=== PATIENT | female | born 1955 | race Caucasian/White ===

== ENCOUNTER 2019-05-18 01:37 | Emergency (ER) | payer OTHER ==
[2019-05-18] MEDS ORDERED: Ondansetron 4 MG/2 ML SDV IVPUSH ONE (01:45)
[2019-05-18] MEDS ORDERED: HYDROmorphone 0.5 MG/0.5 ML Syringe IVPUSH ONE ×2 (01:45→02:49)
--- NOTE | 2019-05-18 01:47 | EDM.PDOC ---
ED HPI GENERAL MEDICAL PROBLEM - General Chief Complaint: Gastrointestinal Problem Stated Complaint: VOMITING Time Seen by Provider: 05/18/19 01:37 Source of Information: Reports: Patient History Limitations: Reports: No Limitations - History of Present Illness INITIAL COMMENTS - FREE TEXT/NARRATIVE: 63-year-old female arrives with severe upper epigastric and right upper quadrant abdominal pain for the past 4 hours. She is crying, extremely uncomfortable and having difficulty walking. She appears to be hyperventilating. It started when she was vomiting 2-3 hours after eating supper at 6 PM and since that time has had intractable severe pain. The symptoms started gradually. She thinks the pain is from "throwing up so hard". She has no chest pain, shortness of breath, palpitations or fever. She had some diarrhea yesterday, no bowel movement today. She feels her heartburn is "terrible". Onset: Gradual Duration: Hour(s): (4-5 hours) Location: Reports: Abdomen Associated Symptoms: Reports: Malaise, Nausea/Vomiting. Denies: Chest Pain, Cough, Weakness epigastric/ abd Pain Score (Numeric/FACES): 10 - Related Data Allergies Allergy/AdvReac Type Severity Reaction Status Date / Time acetaminophen [From Percocet] Allergy Hives Verified 05/18/19 01:45 oxycodone [From Percocet] Allergy Hives Verified 05/18/19 01:45 Home Meds: Home Meds Aspirin [Halfprin] 81 mg PO DAILY 05/18/19 [History] Cholecalciferol (Vitamin D3) [Vitamin D3] 1,000 unit PO DAILY 05/18/19 [History] Ibuprofen [Motrin] 600 mg PO Q6H PRN 05/18/19 [History] Metoprolol Succinate [Toprol Xl] 50 mg PO DAILY 05/18/19 [History] Olopatadine HCl [Pazeo] 1 drop TOP DAILY 05/18/19 [History] Pantoprazole Sodium [Protonix] 40 mg PO DAILY 05/18/19 [History] Simvastatin 20 mg PO BEDTIME 05/18/19 [History] traZODone HCl [Trazodone HCl] 100 mg PO BEDTIME 05/18/19 [History] ED ROS GENERAL - Review of Systems Review Of Systems: See Below Constitutional: Reports: Malaise. Denies: Fever, Chills HEENT: Reports: No Symptoms Respiratory: Denies: Shortness of Breath Cardiovascular: Reports: Chest Pain (Epigastric pain) GI/Abdominal: Reports: Abdominal Pain, Nausea, Vomiting. Denies: Black Stool, Constipation, Diarrhea : Reports: No Symptoms Skin: Reports: Pallor, Diaphoresis Neurological: Reports: No Symptoms ED EXAM, GI/ABD - Physical Exam Exam: See Below Exam Limited By: No Limitations General Appearance: Alert, Severe Distress Eyes: Bilateral: Normal Appearance (No obvious jaundice, good hydration) Head: Atraumatic Respiratory/Chest: No Respiratory Distress, Lungs Clear Cardiovascular: Regular Rate, Rhythm. No: Tachycardia GI/Abdominal Exam: Guarding, Rebound, Tender, Other (Severe tenderness to palpation across the epigastric area with guarding and rebound) Extremities: Normal Inspection. No: Pedal Edema Skin Exam: Warm, Other (Diaphoretic) Course - Vital Signs Last Recorded V/S: Last Vital Signs Temp 97.1 F 05/18/19 01:41 Pulse 95 05/18/19 03:16 Resp 24 H 05/18/19 03:16 BP 154/100 H 05/18/19 03:16 Pulse Ox 97 05/18/19 03:16 - Orders/Labs/Meds Orders: Active Orders 24 hr Category Date Time Status CULTURE BLOOD [BC] Urgent Lab 05/18/19 03:05 Received CULTURE BLOOD [BC] Urgent Lab 05/18/19 03:10 Received Blood Culture x2 Reflex Set [OM.PC] Urgent Oth 05/18/19 03:00 Ordered Labs: Laboratory Tests 05/18/19 05/18/19 05/18/19 Range/Units 02:05 02:05 02:05 WBC 13.7 H (4.5-11.0) K/uL RBC 5.58 H (3.30-5.50) M/uL Hgb 16.5 H (12.0-15.0) g/dL Hct 48.8 H (36.0-48.0) % MCV 88 (80-98) fL MCH 30 (27-31) pg MCHC 34 (32-36) % Plt Count 266 (150-400) K/uL Neut % (Auto) 83 H (36-66) % Lymph % (Auto) 13 L (24-44) % [place] % (Auto) 4 (2-6) % Eos % (Auto) 0 L (2-4) % Baso % (Auto) 0 (0-1) % Sodium 141 (140-148) mmol/L Potassium 3.7 (3.6-5.2) mmol/L Chloride 103 (100-108) mmol/L Carbon Dioxide 27 (21-32) mmol/L Anion Gap 11.2 (5.0-14.0) mmol/L BUN 11 (7-18) mg/dL Creatinine 1.1 H (0.6-1.0) mg/dL Est Cr Clr Drug Dosing 46.38 mL/min Estimated GFR (MDRD) 50 L (>60) Glucose 225 H (74-106) mg/dL Lactic Acid 3.9 H (0.4-2.0) mmol/L Calcium 9.2 (8.5-10.1) mg/dL Total Bilirubin 2.1 H (0.2-1.0) mg/dL AST 169 H (15-37) U/L ALT 89 H (12-78) U/L Alkaline Phosphatase 145 H (46-116) U/L Troponin I (0.000-0.056) ng/mL Total Protein 7.1 (6.4-8.2) g/dL Albumin 3.8 (3.4-5.0) g/dL Globulin 3.3 (2.3-3.5) g/dL Albumin/Globulin Ratio 1.2 (1.2-2.2) Amylase 2453 H (25-115) U/L Lipase 11814 H (73-393) U/L 05/18/19 Range/Units 02:05 WBC (4.5-11.0) K/uL RBC (3.30-5.50) M/uL Hgb (12.0-15.0) g/dL Hct (36.0-48.0) % MCV (80-98) fL MCH (27-31) pg MCHC (32-36) % Plt Count (150-400) K/uL Neut % (Auto) (36-66) % Lymph % (Auto) (24-44) % [place] % (Auto) (2-6) % Eos % (Auto) (2-4) % Baso % (Auto) (0-1) % Sodium (140-148) mmol/L Potassium (3.6-5.2) mmol/L Chloride (100-108) mmol/L Carbon Dioxide (21-32) mmol/L Anion Gap (5.0-14.0) mmol/L BUN (7-18) mg/dL Creatinine (0.6-1.0) mg/dL Est Cr Clr Drug Dosing mL/min Estimated GFR (MDRD) (>60) Glucose (74-106) mg/dL Lactic Acid (0.4-2.0) mmol/L Calcium (8.5-10.1) mg/dL Total Bilirubin (0.2-1.0) mg/dL AST (15-37) U/L ALT (12-78) U/L Alkaline Phosphatase (46-116) U/L Troponin I < 0.017 (0.000-0.056) ng/mL Total Protein (6.4-8.2) g/dL Albumin (3.4-5.0) g/dL Globulin (2.3-3.5) g/dL Albumin/Globulin Ratio (1.2-2.2) Amylase (25-115) U/L Lipase (73-393) U/L Meds: Medications Discontinued Medications Generic Name Dose Route Start Last Admin Trade Name Freq PRN Reason Stop Dose Admin Hydromorphone HCl 0.5 mg 05/18/19 01:45 05/18/19 01:48 Dilaudid IVPUSH 05/18/19 01:46 0.5 mg ONETIME ONE Administration Hydromorphone HCl 0.5 mg 05/18/19 02:49 05/18/19 02:53 Dilaudid IVPUSH 05/18/19 02:50 0.5 mg ONETIME ONE Administration Hydromorphone HCl Confirm 05/18/19 02:50 05/18/19 02:53 Dilaudid Administered 05/18/19 02:51 Not Given Dose 0.5 mg .ROUTE .STK-MED ONE Sodium Chloride 1,000 mls @ 1,000 mls/hr 05/18/19 02:15 05/18/19 02:39 Normal Saline IV 1,000 mls/hr ASDIRECTED CORINE Administration Sodium Chloride 83 mls @ 4 mls/sec 05/18/19 02:20 05/18/19 02:27 Normal Saline IV 05/18/19 02:21 4 mls/sec ASDIRECTED STA Administration Lactated Ringer's 1,000 mls @ 1,000 mls/hr 05/18/19 03:00 05/18/19 02:55 Ringers, Lactated IV 1,000 mls/hr ASDIRECTED CORINE Administration Piperacillin Sod/Tazobactam 100 mls @ 100 mls/hr 05/18/19 03:00 05/18/19 03: 11 Sod 4.5 gm/ Sodium Chloride IV 05/18/19 03:59 100 mls/hr ONETIME ONE Administration Iopamidol 150 ml 05/18/19 02:30 05/18/19 02:27 Isovue-300 (61%) IV 150 ml . DIRECTED CORINE Administration Lorazepam 1 mg 05/18/19 01:54 05/18/19 02:02 Ativan IVPUSH 05/18/19 01:55 1 mg ONETIME ONE Administration Ondansetron HCl 4 mg 05/18/19 01:45 05/18/19 01:48 Zofran IVPUSH 05/18/19 01:46 4 mg ONETIME ONE Administration - Re-Assessments/Exams Free Text/Narrative Re-Assessment/Exam: 05/18/19 03:09 An IV was started and the patient was given 0.5 mg of IV Dilaudid and 4 mg of Zofran. CBC, CMP, amylase, lipase, lactic acid and troponin were obtained. An urgent CT the abdomen and pelvis with IV contrast was obtained and the creatinine returned normal. This revealed extremely inflammatory pancreatitis, lipase returned over 14,000 and amylase over 2400. Bilirubin was 2.1, white count 13,700 and elevation of alkaline phosphatase and AST and ALT were also present. An additional 0.5 mg of IV Dilaudid was given and the patient was bolused with lactated Ringer's. There was a delay in getting a formal CT reading , however it was obvious that severe pancreatitis was present in the gallbladder was also completely packed with stones. I discussed this with our surgeon on-call and it was felt because of the significant gallstone pancreatitis, that gastroenterology, interventional radiology and ICU together should be combined to help this patient so [facility] was called. Dr. Beck, hospitalist service kindly agreed to see the patient. Blood cultures were obtained, she was given 4.5 g of IV Zofran and continued to be bolused with lactated Ringer's. This patient was flown to [place] because of the seriousness of her illness. 05/18/19 03:13 Patient was accepted for transfer at 3 AM. At time of dictation a formal CT report had still not been obtained, the images were sent to [place] for their review and when a formal report is available that will be faxed for completeness. Departure - Departure Time of Disposition: 03:46 Disposition: DC/Tfer to Other 70 Condition: Serious Clinical Impression: Abdominal pain Pancreatitis due to biliary obstruction Qualifiers: Chronicity: acute Acute pancreatitis complication: unspecified Qualified Code(s ): K85.10 - Biliary acute pancreatitis without necrosis or infection - Discharge Information Referrals: Elva Selby PA [Primary Care Provider] - Forms: ED Department Discharge Care Plan Goals: Patient will be urgently transported to [facility] in [place] for gastroenterology, surgical, and intensive care consultations for treatment of acute obstructive pancreatitis. - My Orders Last 24 Hours: My Active Orders 05/18/19 03:00 Blood Culture x2 Reflex Set [OM.PC] Urgent 05/18/19 03:05 CULTURE BLOOD [BC] Urgent 05/18/19 03:10 CULTURE BLOOD [BC] Urgent - Assessment/Plan Last 24 Hours: My Active Orders 05/18/19 03:00 Blood Culture x2 Reflex Set [OM.PC] Urgent 05/18/19 03:05 CULTURE BLOOD [BC] Urgent 05/18/19 03:10 CULTURE BLOOD [BC] Urgent
[2019-05-18] MEDS ORDERED: LORazepam 2 MG/ML SDV IVPUSH ONE (01:54)
[2019-05-18] MEDS ORDERED: Sodium Chloride 0.9% 1,000 ML IV SCH (02:15)
[2019-05-18] MEDS ORDERED: Iopamidol 612 MG/ML 150 ML Bottle IV SCH (02:30)
[2019-05-18] MEDS ORDERED: HYDROmorphone 0.5 MG/0.5 ML Syringe ONE (02:50)
[2019-05-18] MEDS ORDERED: Piperacillin/Tazobactam 4.5 GM in Sodium Chloride 0.9% 100 ML IV ONE (03:00)
[2019-05-18] MEDS ORDERED: Lactated Ringers 1,000 ML IV SCH (03:00)
--- NOTE | 2019-05-18 03:23 | CRLCT ---
INDICATION: Severe upper abdominal pain TECHNIQUE: CT abdomen and pelvis acquired with 150 cc Isovue 300 IV contrast. COMPARISON: None FINDINGS: Lower chest: Unremarkable. Liver: Hepatic steatosis. Spleen: Unremarkable. Pancreas: Peripancreatic fat stranding. Homogeneous enhancement of the pancreas. No peripancreatic fluid collection. The splenic vein is patent. Gallbladder and bile ducts: Chololithiasis. Adrenal glands: Unremarkable. Kidneys: Unremarkable. GI tract: Mild gastric wall thickening. Appendix is normal. Vascular structures: Unremarkable. Lymph nodes: Unremarkable. Pelvic organs: Trace free fluid in the pelvis, likely physiologic. Bones: Unremarkable for age. IMPRESSION: Acute pancreatitis. No peripancreatic fluid collection. Cholelithiasis. Gastric wall thickening suggest gastritis. Hepatic steatosis. Please note that all CT scans at this facility use dose modulation, iterative reconstruction, and/or weight-based dosing when appropriate to reduce radiation dose to as low as reasonably achievable. Dictated by Lisa Perkins MD @ May 18 2019 3:23AM Signed by Dr. Lisa Perkins @ May 18 2019 3:23AM
== END 2019-05-18 03:48 | disposition other institution (70) ==
LOC: JP.ED 01:37
DX: K85.10 Biliary acute pancreatitis without necrosis or infection (principal); Z88.8 Allergy status to other drugs, medicaments and biological substances; Z88.5 Allergy status to narcotic agent; Z79.82 Long term (current) use of aspirin; Z79.899 Other long term (current) drug therapy
CPT/HCPCS: 36415; 74177; 80053; 82150; 83605; 83690; 84484; 85025; 87040; 96365; 96375; 96376; 99285; J1170; J2060; J2405; J2543; J7030; J7120